=== PATIENT | male | born 1970 | race Caucasian/White ===

== ENCOUNTER 2016-09-14 20:51 | Emergency (ER) | payer OTHER ==
[~2016-09-14 20:51] MED LIST: AMOXICILLIN500 M1; BACLOFEN10 MG PO; CUBICIN INJ; HYDROCODON-ACE1 EAC1 PO; HYDROCODON-ACE1 EAC5 PO; LEVEMIR100 UNITS/; LEVEMIR100 UNITS/ SUBQ; LITHIUM CARBON450 MG PO; NAPROSYN375 MG PO; NAPROSYN500 MG PO; NEURONTIN300 MG PO; NEURONTIN800 MG PO; NOVOLOG100 U/ML; ZANAFLEX4 M1 PO; ZOLOFT100 MG; ZOLOFT100 MG PO
== END 2016-09-14 20:56 | disposition home or self-care (01) ==
LOC: CFTX 20:51
DX: M25.551 Pain in right hip (principal); Z79.4 Long term (current) use of insulin; Z79.899 Other long term (current) drug therapy; Z98.890 Other specified postprocedural states
CPT/HCPCS: 96372; 99283; J1885